=== PATIENT | male | born 1950 | race Caucasian/White ===

== ENCOUNTER 2018-02-23 23:12 | Emergency (ER) | payer MEDICARE, OTHER ==
[2018-02-23 23:47] VITALS: RESP 18; TEMP 97.6; O2SAT 99
--- NOTE | 2018-02-23 23:57 | C.PDOC ---
Time Seen by Provider: 02/23/18 23:53 Chief Complaint (Nursing): Upper Extremity Problem/Injury Past Medical History Vital Signs: Last Vital Signs Temp 97.6 F 02/23/18 23:39 Pulse 71 02/23/18 23:39 Resp 18 02/23/18 23:39 BP 136/91 H 02/23/18 23:39 Pulse Ox 99 02/23/18 23:39 - Medical History PMH: Hypothyroidism - Social History Hx Tobacco Use: No Hx Alcohol Use: No Hx Substance Use: No - Immunization History Hx Tetanus Toxoid Vaccination: No Hx Influenza Vaccination: Yes Hx Pneumococcal Vaccination: Yes ED Course And Treatment O2 Sat by Pulse Oximetry: 99 Disposition - Disposition Referrals: Marely Robles MD [Primary Care Provider] -
--- NOTE | 2018-02-24 00:12 | C.PDOC ---
History Of Present Illness 67 year old male with PMHx of brain surgery for pituitary lesion presents to the ED c/o small sebaceous cyst to his left scapular area for the past 3 months. Patient states he called his PMD yesterday but was not seen. Patient reports he did not take anything for his discomfort in the past 3 months. Patient denies fever, chills, rash, nausea, vomit, diarrhea. Time Seen by Provider: 02/23/18 23:53 Chief Complaint (Nursing): Upper Extremity Problem/Injury History Per: Patient History/Exam Limitations: no limitations Onset/Duration Of Symptoms: Persistent Current Symptoms Are (Timing): Still Present Location Of Injury: Left: Back Quality Of Symptoms: Itching, Swollen Recent travel outside of the [place]: No Additional History Per: Patient Past Medical History Reviewed: Historical Data, Nursing Documentation, Vital Signs Vital Signs: Last Vital Signs Temp 97.6 F 02/23/18 23:39 Pulse 71 02/23/18 23:39 Resp 18 02/23/18 23:39 BP 136/91 H 02/23/18 23:39 Pulse Ox 99 02/24/18 00:12 - Medical History PMH: Hypothyroidism Surgical History: No Surg Hx Family History: States: Unknown Family Hx - Social History Hx Tobacco Use: No Hx Alcohol Use: No Hx Substance Use: No - Immunization History Hx Tetanus Toxoid Vaccination: No Hx Influenza Vaccination: Yes Hx Pneumococcal Vaccination: Yes Review Of Systems Constitutional: Negative for: Fever, Chills Cardiovascular: Negative for: Chest Pain, Palpitations Respiratory: Negative for: Cough, Shortness of Breath Musculoskeletal: Positive for: Shoulder Pain Skin: Positive for: Other (sebaceous cyst) Neurological: Negative for: Weakness, Numbness Physical Exam - Physical Exam Appears: Non-toxic, No Acute Distress, Other (bizarre affect, circumlocution) Skin: Normal Color, Warm, Dry Head: Atraumatic, Normacephalic Eye(s): bilateral: Normal Inspection Neck: Normal ROM, Supple Chest: Symmetrical Cardiovascular: Rhythm Regular, No Murmur Respiratory: Normal Breath Sounds, No Rales, No Rhonchi, No Wheezing Gastrointestinal/Abdominal: Soft, No Tenderness, No Guarding, No Rebound Extremity: Normal ROM, No Tenderness, No Swelling, Other (1x1 cm sebaceous cyst left upper scapular area. no erythema, no induration. ) Neurological/Psych: Oriented x3, Normal Speech Gait: Steady ED Course And Treatment O2 Sat by Pulse Oximetry: 99 (ON RA) Pulse Ox Interpretation: Normal Medical Decision Making Medical Decision Making: small sebaceous cyst on L scapular area "for 3 months" being followed by PMD Seen or d/w PMD yesterday (unclear as pt's story is circumlocutoius- ? related to brain issues related to pituitary surgery) Denies dementia/mental illness Normal neuro exam No abscess warm compresses and outpatient f/u. Disposition Doctor Will See Patient In The: Office Counseled Patient/Family Regarding: Studies Performed, Diagnosis - Disposition Referrals: Marely Robles MD [Primary Care Provider] - Disposition: HOME/ ROUTINE Disposition Time: 00:10 Condition: GOOD Additional Instructions: panuela tibia 20 minutos por hora para que abre el quieste sebaceous ibuprofeno 400-600 mg cada 6 horas venus necessario Sigue con patel medico Instructions: Epidermal Cyst (DC) Forms: [employer] (Citizen Of [place]) Print Language: ANGUILLAN - Clinical Impression Clinical Impression: Sebaceous cyst - Scribe Statement The provider has reviewed the documentation as recorded by the Scribe Jesús Ly All medical record entries made by the Scribe were at my direction and personally dictated by me. I have reviewed the chart and agree that the record accurately reflects my personal performance of the history, physical exam, medical decision making, and the department course for this patient. I have also personally directed, reviewed, and agree with the discharge instructions and disposition.
[2018-02-24 00:40] VITALS: BP 136/81; PULSE 88
--- NOTE | 2018-02-26 08:02 | CARD ---
APPROVED REPORT Date of service: 02/23/2018 EKG Measurement Heart [id number] <Conclusion> Sinus rhythm with marked sinus arrhythmia Otherwise normal ECG
== END 2018-02-24 00:35 | disposition home or self-care (01) ==
LOC: SUPCPDRO 23:12 → EDBD 23:12 → C.ER 23:12
DX: L72.3 Sebaceous cyst (principal); E03.9 Hypothyroidism, unspecified